=== PATIENT | male | born 1970 | race Caucasian/White ===

== ENCOUNTER 2020-09-25 01:17 | Emergency (ER) | payer OTHER ==
[~2020-09-25] VITALS: Ht 193 cm; Wt 86.4 kg
[2020-09-25] MEDS ORDERED: IV NORMAL SALINE 1000ML BAG 1,000 ML IV SCH (01:45)
[2020-09-25 01:56] LABS: BASO % 0 % (0-3); EOS # 0.1 x10^3/uL (0.0-0.7); EOS % 0 % (0-3); HEMATOCRIT 40.4 % (39.0-53.0); HEMOGLOBIN 13.8 g/dL (13.0-17.5); LYMPH # 1.4 x10^3/uL (1.0-4.8); LYMPH % 11 % (24-48); MEAN CORPUSCULAR HEMOGLOBIN 32 pg (25-35); MEAN CORPUSCULAR HGB CONC 34 g/dL (31-37); MEAN CORPUSCULAR VOLUME 92 fL (79-100); MONO # 1.4 x10^3/uL (0.0-1.1); MONO % 10 % (0-9); NEUT # 10.2 x10^3/uL (1.8-7.7); NEUT % 78 % (31-73); PLATELET COUNT 191 x10^3/uL (140-400); RED BLOOD COUNT 4.39 x10^6/uL (4.30-5.70); RED CELL DISTRIBUTION WIDTH 13.5 % (11.5-14.5)
[2020-09-25 02:05] LABS: PROTHROMBIN TIME PATIENT 14.5 SEC (11.7-14.0)
[2020-09-25 02:11] LABS: CALCIUM 8.5 mg/dL (8.5-10.1); GFR 79.1; POTASSIUM 4.3 mmol/L (3.5-5.1)
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
[2020-09-25] MEDS ORDERED: LIDOCAINE 1% Multi-Dose 20 ML VIAL. INJ ONE (05:15)
[2020-09-25] MEDS ORDERED: CLINDAMYCIN 900MG PREMIX 50 ML IV ONE (05:15)
[2020-09-25] MEDS ORDERED: MORPHINE SULFATE 4 MG/ML VIAL. IV ONE (05:15)
[2020-09-25 06:17] VITALS: BP 100/64
== END 2020-09-25 06:30 | disposition short-term general hospital (02) ==
LOC: EEVIPCON 01:17 → ER 01:17
DX: S02.85XA Fracture of orbit, unspecified, initial encounter for closed fracture (principal); S06.0X9A Concussion with loss of consciousness of unspecified duration, initial encounter; S01.311A Laceration without foreign body of right ear, initial encounter; F31.9 Bipolar disorder, unspecified; F20.0 Paranoid schizophrenia; Z88.8 Allergy status to other drugs, medicaments and biological substances; Z88.0 Allergy status to penicillin; Z88.1 Allergy status to other antibiotic agents; Y08.89XA Assault by other specified means, initial encounter; Y93.89 Activity, other specified; Y92.89 Other specified places as the place of occurrence of the external cause; Y99.8 Other external cause status
CPT/HCPCS: 36415; 70450; 70486; 71250; 72125; 74176; 80048; 85025; 85610; 85730; 86850; 86900; 86901; 96361; 96365; 96372; 96375; 99285; G0480; J2270; J3490; J7030